=== PATIENT | male | born 1970 | race American Indian/Alaskan Native ===

== ENCOUNTER 2017-01-12 13:12 | Emergency (ER) | payer MEDICARE ==
[2017-01-12 13:28] VITALS: BP 132/87
--- NOTE | 2017-01-12 14:50 | Emergency Department Report ---
ED Extremity Problem HPI - General Chief complaint: Extremity Injury, Lower Stated complaint: RIGHT KNEE PAIN/GOUT ATTACK Time Seen by Provider: 01/12/17 14:50 Source: patient, family Mode of arrival: Wheelchair Limitations: No Limitations - History of Present Illness Initial comments: Pt here report "gout flare in his right knee for 3 days. He said his pain is 10 out of 10 and throbbing and achy. Patient said pain is worse with touching and movement. He said he usually take also seen but is out of his gout medication. Patient does have a primary care physician. Denies any fever or chills or nausea or vomiting. Denies any numbness or tendons or extremities. Patient had similar incident in the past. He said he has been eating and some meat and fish. Denies any trauma MD Complaint: joint swelling, joint paint Onset/Timin -: days(s) Location: right, knee History of Same: Yes -: Yes arthralgia, No fever, No associated dyspnea, No associated chest pain Radiation: none Severity scale (0 -10): 10 Quality: constant, other (throbbing) Consistency: constant Improves with: immobilization, rest Worsens with: weight bearing, walking, exertion, palpation Associated Symptoms: arthralgias. denies: chest pain, shortness of breath, fever, myalgias, rash - Related Data Home Medications Medication Instructions Recorded Confirmed Last Taken Carvedilol [Coreg] 12.5 mg PO BID 10/04/13 10/04/13 10/04/13 Furosemide [Lasix] 10 mg PO DAILY 10/04/13 10/04/13 10/04/13 Gout Med 10/04/13 10/04/13 Unknown Isosorbide Dinitrate [Isordil] 40 mg PO DAILY 10/04/13 10/04/13 10/04/13 Lisinopril [Zestril] 20 mg PO QDAY 10/04/13 10/04/13 10/04/13 Terazosin(Nf) [Hytrin (Nf)] 2 mg PO 10/04/13 10/04/13 10/04/13 hydrALAZINE [Apresoline] 10 mg PO BID 10/04/13 10/04/13 10/04/13 Previous Rx's Medication Instructions Recorded Last Taken Type Colchicine [Colcrys] 0.6 mg PO BID PRN #12 tab 10/21/17 Unknown Rx HYDROcodone/APAP 7.5-325 [[place] 1 each PO Q6HR PRN #12 tablet 01/12/17 Unknown Rx 7.5-325 mg TAB] Ibuprofen [Motrin] 600 mg PO Q8H PRN #15 tablet 01/12/17 Unknown Rx predniSONE [Deltasone] 50 mg PO QDAY #5 tab 01/12/17 Unknown Rx Allergies Allergy/AdvReac Type Severity Reaction Status Date / Time No Known Allergies Allergy Verified 01/12/17 13:26 ED Review of Systems ROS: Stated complaint: RIGHT KNEE PAIN/GOUT ATTACK Other details as noted in HPI Comment: All other systems reviewed and negative Constitutional: no symptoms reported Respiratory: no symptoms reported Cardiovascular: denies: chest pain, palpitations, dyspnea on exertion, orthopnea , edema, syncope, paroxysmal nocturnal dyspnea Gastrointestinal: denies: abdominal pain, nausea, vomiting Musculoskeletal: joint swelling, arthralgia. denies: back pain, myalgia Skin: denies: rash Neurological: denies: headache, weakness, numbness, paresthesias, confusion, abnormal gait, vertigo ED Past Medical Hx - Past Medical History Previous Medical History?: Yes Hx Hypertension: Yes Hx Heart Attack/AMI: Yes Hx Congestive Heart Failure: Yes Hx Arthritis: Yes (gout) Hx HIV: Yes - Surgical History Past Surgical History?: Yes - Family History Family history: hypertension - Social History Smoking Status: Never Smoker Substance Use Type: None - Medications Home Medications: Home Medications Medication Instructions Recorded Confirmed Last Taken Type Carvedilol [Coreg] 12.5 mg PO BID 10/04/13 10/04/13 10/04/13 History Furosemide [Lasix] 10 mg PO DAILY 10/04/13 10/04/13 10/04/13 History Gout Med 10/04/13 10/04/13 Unknown History Isosorbide Dinitrate [Isordil] 40 mg PO DAILY 10/04/13 10/04/13 10/04/13 History Lisinopril [Zestril] 20 mg PO QDAY 10/04/13 10/04/13 10/04/13 History Terazosin(Nf) [Hytrin (Nf)] 2 mg PO 10/04/13 10/04/13 10/04/13 History hydrALAZINE [Apresoline] 10 mg PO BID 10/04/13 10/04/13 10/04/13 History Colchicine [Colcrys] 0.6 mg PO BID PRN #12 tab 01/12/17 Unknown Rx HYDROcodone/APAP 7.5-325 [[place] 1 each PO Q6HR PRN #12 tablet 01/12/17 Unknown Rx 7.5-325 mg TAB] Ibuprofen [Motrin] 600 mg PO Q8H PRN #15 tablet 01/12/17 Unknown Rx predniSONE [Deltasone] 50 mg PO QDAY #5 tab 01/12/17 Unknown Rx ED Physical Exam - General Limitations: No Limitations General appearance: alert, in no apparent distress - Head Head exam: Present: atraumatic, normocephalic, normal inspection - Eye Eye exam: Present: normal appearance, PERRL, EOMI Pupils: Present: normal accommodation - ENT ENT exam: Present: normal exam, normal orophraynx, mucous membranes moist - Neck Neck exam: Present: normal inspection, full ROM. Absent: tenderness, meningismus, lymphadenopathy - Respiratory Respiratory exam: Present: normal lung sounds bilaterally. Absent: respiratory distress, wheezes, chest wall tenderness, accessory muscle use - Cardiovascular Cardiovascular Exam: Present: regular rate, normal rhythm, normal heart sounds. Absent: systolic murmur, diastolic murmur - GI/Abdominal GI/Abdominal exam: Present: soft, normal bowel sounds. Absent: distended, tenderness, guarding, rebound, rigid, organomegaly, mass, bruit, pulsatile mass , hernia - Extremities Exam Extremities exam: Present: normal inspection, full ROM, tenderness, normal capillary refill, joint swelling, other (+2 pulses to all extremities. No neurovascular compromise. No clubbing, or cyanosis. Positive swelling to right knee otherwise no edema.). Absent: pedal edema, calf tenderness - Expanded Lower Extremity Exam Right Hip exam: Present: normal inspection, full ROM, pelvic stability. Absent: tenderness, swelling, abrasion, laceration, ecchymosis, deformity, crepidus, dislocation, erythema, external rotation, internal rotation, shortening Upper Leg exam: Present: normal inspection, full ROM. Absent: tenderness, swelling, abrasion, laceration, ecchymosis, deformity, crepidus, dislocation, erythema Knee exam: Present: normal inspection, full ROM, tenderness, swelling, effusion , full knee extension. Absent: abrasion, laceration, ecchymosis, deformity, crepidus, dislocation, erythema, pain w/ pronation/supination, posterior draw sign, pain/laxity with valgus, pain/laxity with varus Lower Leg exam: Present: normal inspection, full ROM. Absent: tenderness, swelling, abrasion, laceration, ecchymosis, deformity, crepidus, dislocation, erythema, palpable cord, Jasper's sign Ankle exam: Present: normal inspection, full ROM. Absent: tenderness, swelling , abrasion, laceration, ecchymosis, deformity, crepidus, dislocation, erythema Foot/Toe exam: Present: normal inspection, full ROM. Absent: tenderness, swelling, abrasion, laceration, ecchymosis, deformity, crepidus, dislocation, erythema, amputation, puncture wound, foreign body, calcaneal tenderness, tenderness at base of 5th metatarsal, nail avulsion, subungual hematoma Neuro vascular tendon exam: Present: no vascular compromise. Absent: pulse deficit, abnormal cap refill, motor deficit, sensory deficit, tendon deficit, extremity cold to touch, pallor, abnormal 2-point discrimination, decreased fine /light touch, foot drop, peroneal nerve deficit, significant pain with passive ROM of distal joint Gait: Positive: observed and limited by pain - Back Exam Back exam: Present: normal inspection, full ROM. Absent: tenderness, CVA tenderness (R), CVA tenderness (L), muscle spasm, paraspinal tenderness, vertebral tenderness, rash noted - Neurological Exam Neurological exam: Present: alert, oriented X3, normal gait, reflexes normal. Absent: motor sensory deficit - Psychiatric Psychiatric exam: Present: normal affect, normal mood - Skin Skin exam: Present: warm, dry, intact, normal color. Absent: rash ED Course Vital Signs 01/12/17 13:26 Temperature 98.5 F Pulse Rate 84 Respiratory 20 Rate Blood Pressure 132/87 O2 Sat by Pulse 100 Oximetry - Reevaluation(s) Reevaluation #1: 01/12/17 18:36 Patient given Decadron 10 mg IM, Toradol 30 mg IM and Percocet 5/325 mg 2 tablets by mouth for gout flare. ED Medical Decision Making - Medical Decision Making ED course: Patient presented emergency room reporting that he has a flare up of gout that's been ongoing over the last 3 days. He said he has gout and he ran out of his medication which he usually takes which is colchicine. Patient said his primary care doctor prescribe his gout medication. He said he hasn't had a chance to see his primary care physician and his pain is increasing and he could not wait until next week. Physical findings for right knee swelling, effusion without any erythema. Right knee tender to palpate. Patient was given Percocet 5/325 2 tablets by mouth, Toradol 30 mg IM and Decadron 10 mg IM for gout flare. He voiced that his pain was down to 2 out of 10. Patient had no fever and no concerns for septic joint. I discussed the patient that he will need to call his primary care physician and Saturday to schedule an appointment for follow-up gout flare. I also discussed with him that he needs to avoid foods that is high in purine to refer to his discharge instruction paperwork for details. Patient discharged home with his family member with prescription for colchicine, [place], prednisone and Motrin. Critical care attestation.: If time is entered above; I have spent that time in minutes in the direct care of this critically ill patient, excluding procedure time. ED Disposition Clinical Impression: Acute gout of right knee Qualifiers: Gout etiology: unspecified cause Qualified Code(s): M10.9 - Gout, unspecified Knee pain, right Qualifiers: Chronicity: acute Qualified Code(s): M25.561 - Pain in right knee Disposition: -01 TO HOME OR SELFCARE Is pt being admited?: No Does the pt Need Aspirin: No Condition: Stable Instructions: Arthralgia (ED), Acute Gouty Arthritis (ED) Additional Instructions: Please increase her fluid intake Referred to discharge instruction paperwork for food that is low purine Please do not drive or operate heavy machinery while taking [place] as this medication will cause drowsiness Please follow up with the primary care physician in 2-3 days. Call on Saturday to schedule an appointment. Prescriptions: Colchicine [Colcrys] 0.6 mg PO BID PRN #12 tab PRN Reason: GOUT HYDROcodone/APAP 7.5-325 [[place] 7.5-325 mg TAB] 1 each PO Q6HR PRN #12 tablet PRN Reason: Pain Ibuprofen [Motrin] 600 mg PO Q8H PRN #15 tablet PRN Reason: Pain predniSONE [Deltasone] 50 mg PO QDAY #5 tab Referrals: PRIMARY CARE, [Primary Care Provider] - 2-3 Days Forms: Work/School Release Form(ED)
[2017-01-12] MEDS ORDERED: DECADRON IM ONE (15:50)
[2017-01-12] MEDS ORDERED: PERCOCET 5/325 PO ONE (15:50)
[2017-01-12] MEDS ORDERED: TORADOL IM ONE (15:50)
== END 2017-01-12 18:53 | disposition home or self-care (01) ==
LOC: ED 13:12
DX: M10.9 Gout, unspecified (principal); M25.561 Pain in right knee; I10 Essential (primary) hypertension; I25.2 Old myocardial infarction; I50.9 Heart failure, unspecified
CPT/HCPCS: 96372; 99282; J1100; J1885

== ENCOUNTER 2018-12-26 17:41 | Emergency (ER) | payer MEDICARE, OTHER ==
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
[2018-12-26] MEDS ORDERED: CYCLOBENZAPRINE 10 MG TAB PO ONE (19:37)
[2018-12-26] MEDS ORDERED: ACETAMINOPHEN 500 MG TAB PO ONE (19:37)
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
[2018-12-27 00:47] VITALS: BP 159/109
== END 2018-12-26 21:45 | disposition home or self-care (01) ==
LOC: ED 17:41
DX: S93.401A Sprain of unspecified ligament of right ankle, initial encounter (principal); S63.502A Unspecified sprain of left wrist, initial encounter; M62.830 Muscle spasm of back; M62.838 Other muscle spasm; I11.0 Hypertensive heart disease with heart failure; I50.9 Heart failure, unspecified; I25.2 Old myocardial infarction; M10.9 Gout, unspecified; Z79.899 Other long term (current) drug therapy; V89.2XXA Person injured in unspecified motor-vehicle accident, traffic, initial encounter; Y93.89 Activity, other specified; Y92.89 Other specified places as the place of occurrence of the external cause; Y99.8 Other external cause status
CPT/HCPCS: 70450; 70486; 72040; 72100

== ENCOUNTER 2019-02-24 16:04 | Emergency (ER) | payer MEDICARE ==
[2019-02-24 17:02] LABS: Basophils % (Auto) 0.7 % (0.0-1.8); Eosinophils # (Auto) 0.2 K/mm3 (0.0-0.4); Eosinophils % (Auto) 4.2 % (0.0-4.3); Hematocrit 41.9 % (35.5-45.6); Hemoglobin 13.8 gm/dl (11.8-15.2); Lymphocytes # (Auto) 0.8 K/mm3 (1.2-5.4); Lymphocytes % (Auto) 16.1 % (13.4-35.0); Mean Corpuscular HGB Conc 33 % (32-34); Mean Corpuscular Volume 90 fl (84-94); Monocytes # (Auto) 0.3 K/mm3 (0.0-0.8); Monocytes % (Auto) 6.4 % (0.0-7.3); Platelet Count 208 K/mm3 (140-440); Red Blood Count 4.65 M/mm3 (3.65-5.03); Red Cell Distribution Width 13.9 % (13.2-15.2)
[2019-02-24 17:21] LABS: Calcium 9.2 mg/dL (8.4-10.2)
--- NOTE | 2019-02-24 18:27 | Emergency Department Report ---
ED General Adult HPI - General Chief complaint: Dizziness Stated complaint: DIZZINESS/HYPOTENSION Time Seen by Provider: 02/24/19 16:29 Source: patient, EMS (EMS documentation not available at the time of chart dictation), RN notes reviewed, old records reviewed Mode of arrival: Stretcher Limitations: No Limitations - History of Present Illness Initial comments: Primary care Dr.: Dr. Salas Cardiology: Dr. Logan Nephrology: Dr. Hanna Past medical history: Hypertension, renal insufficiency Patient is a 48-year-old gentleman who is not known to this provider previously. The patient presented to the ER with a complaint of painless lightheadedness and dizziness. This was associated with nausea. Apparently, patient was hypotensive in the field, blood pressure of 60/40, and 92/58. The patient states that on a recent vacation, he began taking his water pills/Lasix because he felt that he had lower extremity edema. He continued to take his water pill and Lasix even when his lower external swelling resolved. He also reports that his hydralazine was increased to 100 mg 3 times daily a few weeks months ago by his primary meteorological equipment repairer. His lightheadedness and nausea are now resolved. His hypotension is now resolved. At the moment, he denies headache, neck pain, chest pain, abdominal pain and shortness of breath. He denies posterior leg pain and posterior leg swelling. He denies hematemesis and bright red blood per rectum. He does report a recent trip to [place], by car, he does reports stopping for gas and for bathroom breaks. There are no recent surgeries. -: Gradual Consistency: now resolved Improves with: none Worsens with: none - Related Data Home Medications Medication Instructions Recorded Confirmed Last Taken Lisinopril [Zestril] 40 mg PO QDAY 10/04/13 02/24/19 10/04/13 carvediloL [Coreg] 12.5 mg PO BID 10/04/13 02/24/19 10/04/13 Allopurinol [Zyloprim] 300 mg PO QDAY 02/24/19 02/24/19 Unknown Metoprolol Tartrate [Lopressor] 100 mg PO BID 02/24/19 02/24/19 Unknown Pravastatin [Pravachol] 20 mg PO DAILY 02/24/19 02/24/19 Unknown Terazosin HCl 10 mg PO QHS 02/24/19 02/24/19 Unknown Previous Rx's Medication Instructions Recorded Last Taken Type Colchicine [Colcrys] 0.6 mg PO BID PRN #12 tab 01/12/17 Unknown Rx Allergies Allergy/AdvReac Type Severity Reaction Status Date / Time No Known Allergies Allergy Verified 03/23/18 10:36 ED Review of Systems ROS: Stated complaint: DIZZINESS/HYPOTENSION Other details as noted in HPI Constitutional: malaise. denies: fever Eyes: denies: eye discharge ENT: denies: congestion Respiratory: denies: wheezing Cardiovascular: other. denies: chest pain Gastrointestinal: nausea. denies: hematemesis, melena, hematochezia Genitourinary: denies: dysuria Musculoskeletal: denies: myalgia Skin: denies: lesions Neurological: weakness Hematological/Lymphatic: denies: easy bleeding ED Past Medical Hx - Past Medical History Previous Medical History?: Yes Hx Hypertension: Yes Hx Heart Attack/AMI: Yes (2) Hx Congestive Heart Failure: Yes Hx Arthritis: Yes (gout) Hx HIV: Yes Additional medical history: chronic renal failure - Social History Smoking Status: Never Smoker Substance Use Type: None - Medications Home Medications: Home Medications Medication Instructions Recorded Confirmed Last Taken Type Lisinopril [Zestril] 40 mg PO QDAY 10/04/13 02/24/19 10/04/13 History carvediloL [Coreg] 12.5 mg PO BID 10/04/13 02/24/19 10/04/13 History Colchicine [Colcrys] 0.6 mg PO BID PRN #12 tab 01/12/17 02/24/19 Unknown Rx Allopurinol [Zyloprim] 300 mg PO QDAY 02/24/19 02/24/19 Unknown History Metoprolol Tartrate [Lopressor] 100 mg PO BID 02/24/19 02/24/19 Unknown History Pravastatin [Pravachol] 20 mg PO DAILY 02/24/19 02/24/19 Unknown History Terazosin HCl 10 mg PO QHS 02/24/19 02/24/19 Unknown History ED Physical Exam - General Limitations: No Limitations General appearance: alert, in no apparent distress - Head Head exam: Present: atraumatic, normocephalic - Eye Eye exam: Present: normal appearance, PERRL, EOMI, other (visual acuity intact to finger counting and color perception out of closest). Absent: nystagmus - ENT ENT exam: Present: normal exam, normal orophraynx, mucous membranes moist, normal external ear exam - Neck Neck exam: Present: normal inspection, full ROM. Absent: tenderness, meningismus - Respiratory Respiratory exam: Present: normal lung sounds bilaterally. Absent: respiratory distress - Cardiovascular Cardiovascular Exam: Present: regular rate, normal rhythm, normal heart sounds. Absent: bradycardia, tachycardia, irregular rhythm, systolic murmur, diastolic murmur, rubs, gallop - GI/Abdominal GI/Abdominal exam: Present: soft, normal bowel sounds. Absent: distended, tende rness, guarding, rebound, rigid, pulsatile mass - Rectal Rectal exam: Present: deferred - Extremities Exam Extremities exam: Present: normal inspection, full ROM, other (2+ pulses noted in the bilateral upper and lower extremities. There is no long bony tenderness. The muscular compartments are soft. The pelvis is stable.). Absent: pedal edema, joint swelling, calf tenderness - Back Exam Back exam: Present: normal inspection, full ROM. Absent: tenderness, CVA tenderness (R), CVA tenderness (L), paraspinal tenderness, vertebral tenderness - Neurological Exam Neurological exam: Present: alert (there is no past-pointing. There is normal [id number]. There is no pronator drift. There is a normal gait. There is negative Romberg examination.), oriented X3, normal gait, other (there is no facial droop. The tongue is midline. The extraocular movements are intact bilaterally. ). Absent: motor sensory deficit - Psychiatric Psychiatric exam: Present: normal affect, normal mood - Skin Skin exam: Present: warm, dry, intact, normal color. Absent: rash ED Course Vital Signs 02/24/19 02/24/19 02/24/19 16:10 17:00 18:00 Temperature 98.6 F 98.4 F Pulse Rate 74 88 86 Respiratory 16 16 16 Rate Blood Pressure 121/74 Blood Pressure 113/68 123/90 [Left] O2 Sat by Pulse 100 100 100 Oximetry ED Medical Decision Making - Lab Data Result diagrams: 02/24/19 16:38 02/24/19 16:38 Vital Signs 02/24/19 02/24/19 02/24/19 16:10 17:00 18:00 Temperature 98.6 F 98.4 F Pulse Rate 74 88 86 Respiratory 16 16 16 Rate Blood Pressure 121/74 Blood Pressure 113/68 123/90 [Left] O2 Sat by Pulse 100 100 100 Oximetry Lab Results 02/24/19 02/24/19 Range/Units 16:38 16:38 WBC 5.0 (4.5-11.0) K/mm3 RBC 4.65 (3.65-5.03) M/mm3 Hgb 13.8 (11.8-15.2) gm/dl Hct 41.9 (35.5-45.6) % MCV 90 (84-94) fl MCH 30 (28-32) pg MCHC 33 (32-34) % RDW 13.9 (13.2-15.2) % Plt Count 208 (140-440) K/mm3 Lymph % (Auto) 16.1 (13.4-35.0) % [place] % (Auto) 6.4 (0.0-7.3) % Eos % (Auto) 4.2 (0.0-4.3) % Baso % (Auto) 0.7 (0.0-1.8) % Lymph # 0.8 L (1.2-5.4) K/mm3 [place] # 0.3 (0.0-0.8) K/mm3 Eos # 0.2 (0.0-0.4) K/mm3 Baso # 0.0 (0.0-0.1) K/mm3 Seg Neutrophils % 72.6 H (40.0-70.0) % Seg Neutrophils # 3.7 (1.8-7.7) K/mm3 Sodium 140 (137-145) mmol/L Potassium 4.1 (3.6-5.0) mmol/L Chloride 103.5 (98-107) mmol/L Carbon Dioxide 20 L (22-30) mmol/L Anion Gap 21 mmol/L BUN 34 H (9-20) mg/dL Creatinine 3.5 H (0.8-1.5) mg/dL Estimated GFR 23 ml/min BUN/Creatinine Ratio 10 % Glucose 121 H (75-100) mg/dL Calcium 9.2 (8.4-10.2) mg/dL Troponin T 0.017 (0.00-0.029) ng/mL - EKG Data -: EKG Interpreted by Nm EKG shows normal: sinus rhythm Rate: normal - EKG Data When compared to previous EKG there are: no significant change 02/24/19 19:19 The EKG today shows a sinus rhythm, 74 bpm, normal axis, left ventricular hypertrophy, the QTC is prolonged, there is poor R-wave progression, nonspecific T-wave abnormality, the EKG is abnormal, it is unchanged from prior, the EKG appears to be somewhat to prior EKG from February 2018. The EKG is not consistent with ST elevation myocardial infarction. - Medical Decision Making Differential diagnosis, including but not limited to: Orthostasis, vagal event, dehydration Assessment and plan: 48-year-old gentleman who presents with resolved orthostasis, no symptoms at this time, in the context of recent overzealous diuresis, and being on multiple antihypertensive medications. He is recent trip to [place] is reviewed and appreciated, however, he is not tachycardic, ta chypnea, or hypoxic, he endorses no chest pain or shortness of breath, therefore, I think acute coronary syndrome or pulmonary embolism are unlikely. A troponin was sent on this patient prior to my personal evaluation, however, based off of the history and physical, I think the patient is unlikely to be experiencing an atypical presentation of acute coronary syndrome. Contacted covering cardiology, Dr. Zoraida Boykin, and we discussed the patient's case. We both agree the patient is suitable to follow up as an outpatient, and Dr. Boykin Agrees to have the patient followed up in office later on this week. He recommends the patient hold isosorbide, hydralazine, and Lasix, hold all of his antihypertensive medications, and he may resume lisinopril, metoprolol, and nifedipine tomorrow, but only taking 60 mg of nifedipine once daily, instead of twice daily. The patient has been observed in the ER for a few hours without clinical decompensation, he is endorsing a desire to leave and be discharged. Critical care attestation.: If time is entered above; I have spent that time in minutes in the direct care of this critically ill patient, excluding procedure time. ED Disposition Clinical Impression: Orthostasis, CKD (chronic kidney disease) Disposition: - TO HOME OR SELFCARE Is pt being admited?: No Does the pt Need Aspirin: No Condition: Stable Additional Instructions: Recommend the patient hold all of his blood pressure medications this evening. For the time being, recommend that patient not take his isosorbide, hydralazine or Lasix or terazosin. Starting tomorrow morning, patient may resume lisinopril, metoprolol, and nifedipine, but he should only take nifedipine once daily instead of twice daily. Patient may continue the remainder of his medications. Patient should contact his meteorological equipment repairer first thing tomorrow morning to arrange outpatient follow-up by the end of the week. Recommend the patient not drive or operate motor vehicles for the time being until he follows up with his primary care doctor or meteorological equipment repairer by the end of the week. Return to the emergency room right away with new, worsening or different symptoms, or symptoms not present on the initial emergency room evaluation. Referrals: INOCENCIA BOYKIN MD [Staff Physician] - 3-5 Days DALILA TALAMANTES MD [Staff Physician] - 3-5 Days
[2019-02-24 19:54] VITALS: BP 124/95
== END 2019-02-24 20:00 | disposition home or self-care (01) ==
LOC: ED 16:04
DX: I95.1 Orthostatic hypotension (principal); N18.9 Chronic kidney disease, unspecified; I21.9 Acute myocardial infarction, unspecified; I13.0 Hypertensive heart and chronic kidney disease with heart failure and stage 1 through stage 4 chronic kidney disease, or unspecified chronic kidney disease; E11.22 Type 2 diabetes mellitus with diabetic chronic kidney disease; I50.9 Heart failure, unspecified; M19.90 Unspecified osteoarthritis, unspecified site; Z21 Asymptomatic human immunodeficiency virus [HIV] infection status; Z79.899 Other long term (current) drug therapy
CPT/HCPCS: 36415; 80048; 84484; 85025; 93005; 93010